=== PATIENT | male | born 1990 | race Caucasian/White ===

== ENCOUNTER 2020-07-29 12:54 | Emergency (ER) | payer BC ==
[2020-07-29] MEDS ORDERED: Bacitracin 1 PK ONE (13:37)
[2020-07-29] MEDS ORDERED: Boostrix 0.5 ML (Tdap) VIAL ONE (13:37)
[2020-07-29] MEDS ORDERED: Sulfameth/Trimethoprim DS 800-160mg TAB ONE (13:37)
--- NOTE | 2020-07-29 15:22 | RAD ---
RIGHT HAND THREE VIEWS: Date: 07-29-2020 FINDINGS: Soft tissue swelling is see over the end of the fifth digit, but no underlying fracture or dislocatio n was seen. IMPRESSION: No acute bony finding. POS: HOME
== END 2020-07-29 14:10 | disposition home or self-care (01) ==
LOC: BURERS 12:54
DX: S61.216A Laceration without foreign body of right little finger without damage to nail, initial encounter (principal); W22.8XXA Striking against or struck by other objects, initial encounter
CPT/HCPCS: 90471; 90715